=== PATIENT | male | born 1970 | race Two or more races ===

== ENCOUNTER 2024-10-25 14:55 | Emergency (ER) | payer MEDICARE, OTHER ==
[~2024-10-25] VITALS: Ht 180.3 cm; Wt 75.7 kg
[2024-10-25] MEDS ORDERED: ATOR40TA (15:00)
[2024-10-25] MEDS ORDERED: EMPA25TA PO (15:00)
[2024-10-25] MEDS ORDERED: METH-807 PO (15:44)
[2024-10-25 16:02] VITALS: BP 122/78; O2SAT 99
== END 2024-10-25 16:03 | disposition home or self-care (01) ==
LOC: ER 14:55
DX: M54.40 Lumbago with sciatica, unspecified side (principal); E11.9 Type 2 diabetes mellitus without complications; F17.210 Nicotine dependence, cigarettes, uncomplicated; Z79.84 Long term (current) use of oral hypoglycemic drugs
CPT/HCPCS: A4606; A4663

== ENCOUNTER 2024-10-29 10:33 | Emergency (ER) | payer MEDICARE, OTHER ==
[~2024-10-29] VITALS: Ht 180.3 cm; Wt 76.2 kg
[~2024-10-29 10:33] MED LIST: ATOR40TA; EMPA25TA PO; METH-807 PO
[2024-10-29] MEDS ORDERED: predniSONE 50 MG TABLET ONE (10:48)
[2024-10-29] MEDS ORDERED: HYDROMORPHONE 2 MG/1 ML DISP.SYRIN ONE (10:49)
[2024-10-29] MEDS ORDERED: ONDANSETRON ODT 4 MG TAB.RAPDIS ONE (10:49)
[2024-10-29] MEDS ORDERED: predniSONE 10 MG TABLET ONE (10:49)
[2024-10-29] MEDS ORDERED: KETOROLAC TROMETHAMINE 30 MG INJ ONE (10:49)
[2024-10-29] MEDS: KETOROLAC TROMETHAMINE 30 MG INJ IM ONE (10:55)
[2024-10-29] MEDS: HYDROMORPHONE 1 MG/1 ML DISP.SYRIN IM ONE (10:55)
[2024-10-29] MEDS: predniSONE 20 MG TABLET PO ONE (10:55)
[2024-10-29] MEDS: ONDANSETRON ODT 4 MG TAB.RAPDIS SL ONE (10:56)
[2024-10-29] MEDS ORDERED: HYDR-3980 PO (12:10)
[2024-10-29] MEDS ORDERED: NAPR500T6 PO (12:10)
[2024-10-29] MEDS ORDERED: PRED50TA PO (12:10)
[2024-10-29 12:20] VITALS: BP 132/74; TEMP 97.7; O2SAT 99
== END 2024-10-29 12:21 | disposition home or self-care (01) ==
LOC: ER 10:33
DX: E11.9 Type 2 diabetes mellitus without complications (principal); M54.32 Sciatica, left side; Z79.52 Long term (current) use of systemic steroids; Z79.84 Long term (current) use of oral hypoglycemic drugs
CPT/HCPCS: 99284; 96372 ×2; J1885; J1171; J7512 ×2; A4606; A4663; Q0162